=== PATIENT | female | born 2000 | race Two or more races ===

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

== ENCOUNTER 2023-09-26 22:37 | Emergency (ER) | payer OTHER ==
[~2023-09-26] VITALS: Ht 160 cm; Wt 67.6 kg
[2023-09-26 23:23] VITALS: BP 133/94; TEMP 98.7; O2SAT 98
[2023-09-26 23:34] LABS: APPEARANCE,URINE CLEAR (CLEAR); BILIRUBIN,URINE NEGATIVE (NEGATIVE); BLOOD, URINE 1+ Ery/uL (NEGATIVE); COLOR,URINE YELLOW (YELLOW); KETONES,URINE TRACE mg/dL (NEGATIVE); LEUKOCYTE ESTERASE ,URINE 1+ (NEGATIVE); NITRITE, URINE POSITIVE (NEGATIVE); PH,URINE 6.5 (5.0-8.0); PROTEIN,URINE NEGATIVE (NEGATIVE); UGLUCOSE NEGATIVE (NEGATIVE)
[2023-09-26 23:36] LABS: PREGNANCY TEST URINE QUAL NEGATIVE (NEGATIVE)
[2023-09-26] MEDS ORDERED: NITR100C6 PO (23:37)
[2023-09-26] MEDS ORDERED: PHEN-705 PO (23:37)
[2023-09-26 23:39] LABS: ADD URINE CULTURE YES; BACTERIA,URINE Few /HPF (None Seen); SQUAMOUS EPITHELIAL CELL,UR Rare /HPF (None Seen)
[2023-09-26] MEDS ORDERED: NITROFURANTOIN/MONOHYDRATE MACROCRYSTALS 100 MG CAPSULE ONE (23:40)
[2023-09-26] MEDS ORDERED: PHENAZOPYRIDINE HCL 200 MG TABLET ONE (23:40)
[2023-09-26] MEDS: NITROFURANTOIN/MONOHYDRATE MACROCRYSTALS 100 MG CAPSULE PO ONE (23:44)
[2023-09-26] MEDS: PHENAZOPYRIDINE HCL 200 MG TABLET PO ONE (23:44)
== END 2023-09-26 23:45 | disposition home or self-care (01) ==
LOC: ER 22:43
DX: N39.0 Urinary tract infection, site not specified (principal); F32.A Depression, unspecified; Z79.899 Other long term (current) drug therapy; R10.2 Pelvic and perineal pain
CPT/HCPCS: 81001; 84703-TC; 87086-TC

== ENCOUNTER 2023-11-28 18:49 | Emergency (ER) | payer OTHER ==
[~2023-11-28 18:49] MED LIST: NITR100C6 PO; PHEN-705 PO
--- NOTE | 2023-11-28 20:28 | NUR ---
CALLED FOR TRIAGE. NO ANSWER
--- NOTE | 2023-11-28 20:58 | NUR ---
CALLED FOR TRIAGE. NO ANSWER
== END 2023-11-28 21:03 | disposition left against medical advice (07) ==
LOC: ER 18:52
DX: R21 Rash and other nonspecific skin eruption (principal); Z53.21 Procedure and treatment not carried out due to patient leaving prior to being seen by health care provider